=== PATIENT | female | born 1960 | race Caucasian/White ===

== ENCOUNTER 2017-08-19 13:15 | Emergency (ER) | payer OTHER ==
[~2017-08-19] VITALS: Ht 160 cm; Wt 86.6 kg
[2017-08-19 13:37] VITALS: BP 141/103
--- NOTE | 2017-08-19 13:44 | NUR ---
patient to rm 12 with steady gait and gave report to Tiffany BERRY.
--- NOTE | 2017-08-19 13:45 | NUR ---
57y/m bib self c/o intermittent headache x 1 week, progressively getting worse. Patient also reports of dizziness. Patient denies any dizziness or chest pain at this time. PATIENT POSITIONED FOR COMFORT; HOB ELEVATED; BEDRAILS UP X2; BED DOWN. ER MD MADE AWARE OF PT STATUS.
[2017-08-19] MEDS ORDERED: LIDOCAINE MPF 1% - **ER/OR** 10 MG/ML VIAL INJ ONE (14:35)
--- NOTE | 2017-08-19 14:41 | NUR ---
MEDICATION AND SUPPLY READY FOR MD
[2017-08-19 15:57] VITALS: BP 140/102
== END 2017-08-19 15:57 | disposition home or self-care (01) ==
LOC: MED 13:15
DX: G44.209 Tension-type headache, unspecified, not intractable (principal); J45.909 Unspecified asthma, uncomplicated
CPT/HCPCS: 20552; 81002; 99284; J2001

== ENCOUNTER 2017-11-19 17:40 | Emergency (ER) | payer OTHER ==
[~2017-11-19] VITALS: Ht 144.8 cm; Wt 68.9 kg
[2017-11-19 17:57] VITALS: BP 132/85
--- NOTE | 2017-11-19 18:03 | NUR ---
PT AMBULATES TO BED 2
--- NOTE | 2017-11-19 18:14 | NUR ---
bib self with c/o right shoulder pain x 3 wks. Patient sts no relief with OTC medication. Patient denies any recent injury or fall. Patient sts she has chronic right shoulder pain due to previous job. Patient also sts she has all over body pain x today. hx--arthritis, chronic shoulder pain. SKIN IS PINK/WARM/DRY; AAOX4 WITH EVEN AND STEADY GAIT; LUNGS CLEAR BL; HR EVEN AND REGULAR; PATIENT STATES PAIN OF 9/10 AT THIS TIME. PATIENT POSITIONED FOR COMFORT; HOB ELEVATED; BEDRAILS UP X2; BED DOWN. ER MD MADE AWARE OF PT STATUS.
--- NOTE | 2017-11-19 18:54 | NUR ---
X RAY AT BEDSIDE
--- NOTE | 2017-11-19 19:12 | NUR ---
Pt report given to HERIBERTO BERRY. Transfer of care at this time.
--- NOTE | 2017-11-19 19:13 | NUR ---
PT LYING IN BED, VITALS STABLE.
--- NOTE | 2017-11-19 19:42 | NUR ---
AT PT BEDSIDE
[2017-11-19] MEDS ORDERED: KETOROLAC 60 MG/2 ML VIAL IM ONE (19:45)
[2017-11-19 20:28] VITALS: BP 125/68
--- NOTE | 2017-11-19 20:28 | NUR ---
Patient discharged with v/s stable. Written and verbal after care instructions given and explained. Patient alert, oriented and verbalized understanding of instructions. Ambulatory with steady gait. All questions addressed prior to discharge. ID band removed. Patient advised to follow up with PMD. Rx of motrin was given. Patient educated on indication of medication including possible reaction and side effects. Opportunity to ask questions provided and answered.
== END 2017-11-19 20:28 | disposition home or self-care (01) ==
LOC: MED 17:40
DX: M25.511 Pain in right shoulder (principal); M06.9 Rheumatoid arthritis, unspecified; J45.909 Unspecified asthma, uncomplicated
CPT/HCPCS: 73030; 96372; 99284; J1885; Q0092

== ENCOUNTER 2018-11-09 09:44 | Emergency (ER) | payer OTHER ==
[~2018-11-09] VITALS: Ht 157.5 cm; Wt 83.6 kg
[2018-11-09 09:46] VITALS: BP 111/74
[2018-11-09] MEDS ORDERED: KETOROLAC 60 MG/2 ML VIAL IM ONE (11:10)
[2018-11-09 13:15] VITALS: BP 114/68
== END 2018-11-09 13:14 | disposition home or self-care (01) ==
LOC: MED 09:44
DX: S39.012A Strain of muscle, fascia and tendon of lower back, initial encounter (principal); J45.909 Unspecified asthma, uncomplicated; X58.XXXA Exposure to other specified factors, initial encounter; Y93.89 Activity, other specified; Y92.89 Other specified places as the place of occurrence of the external cause; Y99.8 Other external cause status
CPT/HCPCS: 74022; 96372; 99283; J1885

== ENCOUNTER 2019-01-12 10:48 | Emergency (ER) | payer OTHER ==
[~2019-01-12] VITALS: Ht 157.5 cm; Wt 84.8 kg
[2019-01-12 10:52] VITALS: BP 146/68
--- NOTE | 2019-01-12 10:57 | NUR ---
Patient ambulated to bed 3. RN evaluating patient at bedside.
--- NOTE | 2019-01-12 10:58 | NUR ---
RECIEVED PATIENT AAOX4, CITIZEN OF [place] SPE[employer], W/ C/O SOAR THROAT X2 DAYS THAT IS WORSENING, THROAT PAIN- 8/10. PT HAS A HX OF ASTHMA, NO FEVER @ PRESENT. PLACED IN A GOWN. PENDING ER MD DR CROWELL ASSESSMENT.
--- NOTE | 2019-01-12 11:16 | NUR ---
Dr. Dunn is evaluating the patient at bedside.
--- NOTE | 2019-01-12 11:19 | NUR ---
SEEN BY DR CROWELL AT BEDSIDE.
[2019-01-12] MEDS ORDERED: IBUPROFEN CHILDRENS 100 MG/5 ML UDC PO ONE (11:20)
--- NOTE | 2019-01-12 13:50 | NUR ---
Re-eval by dr Dunn and final dispo explained
[2019-01-12 14:14] VITALS: BP 101/67
--- NOTE | 2019-01-12 14:18 | NUR ---
Patient discharged with v/s stable. Written and verbal after care instructions, Rx x4 for prednisone, naproxen, nebulizer, metered dose recepticle given and explained. Patient verbalized understanding. Ambulatory with steady gait. All questions addressed prior to discharge. Advised to follow up with PMD.
== END 2019-01-12 14:18 | disposition home or self-care (01) ==
LOC: MED 10:48
DX: R03.0 Elevated blood-pressure reading, without diagnosis of hypertension (principal); J03.90 Acute tonsillitis, unspecified; J45.909 Unspecified asthma, uncomplicated
CPT/HCPCS: 87081; 99283

== ENCOUNTER 2019-07-27 10:58 | Emergency (ER) | payer OTHER ==
[~2019-07-27] VITALS: Ht 154.9 cm; Wt 85.7 kg
[2019-07-27 11:05] VITALS: BP 155/84
--- NOTE | 2019-07-27 11:08 | NUR ---
PT AMBULATED TO BED 07
--- NOTE | 2019-07-27 11:09 | NUR ---
59 Y/O FEMALE FROM HOME C/O LT SHOUDLER AND LT UPPER BACK PAIN S/P FALL 3 MONTHS AGO, INCREASED PAIN THE LAST 4 DAYS. PT STATES PAIN HAS BEEN KEEPING HER AWAKE AT NIGHT. NO DEFORMITIES NOTED. +CMS. 9/10 ACHING PAIN TO LT SHOULDER RADIATING TO BACK. DENIES CHEST PAIN/SOB. AWAKE AND ALERT, POSITIONED FOR COMFORT. VSS MEDHX: ASTHMA ALLERGIES: NKA
--- NOTE | 2019-07-27 11:23 | NUR ---
Dr. Mosley is evaluating the patient at bedside.
[2019-07-27] MEDS ORDERED: KETOROLAC 30 MG/ML VIAL IM ONE (11:25)
[2019-07-27] MEDS ORDERED: predniSONE 20 MG TAB PO ONE (12:10)
[2019-07-27 12:16] VITALS: BP 155/84
--- NOTE | 2019-07-27 12:17 | NUR ---
Patient discharged with v/s stable. Written and verbal after care instructions given and explained. Patient alert, oriented and verbalized understanding of instructions. Ambulatory with steady gait. All questions addressed prior to discharge. ID band removed. Patient advised to follow up with PMD. Rx of MOTRIN AND PREDNISONE given. Patient educated on indication of medication including possible reaction and side effects. Opportunity to ask questions provided and answered.
== END 2019-07-27 12:17 | disposition home or self-care (01) ==
LOC: MED 10:58
DX: M25.512 Pain in left shoulder (principal); J45.909 Unspecified asthma, uncomplicated
CPT/HCPCS: 73030; 96372; 99283; J1885; J7512

== ENCOUNTER 2019-08-10 10:55 | Observation (INO) | payer OTHER ==
[~2019-08-10] VITALS: Ht 160 cm; Wt 83.0 kg
--- NOTE | 2019-08-10 11:00 | NUR ---
PT AMBULATED TO BED 1, STEADY GAIT.
[2019-08-10 11:06] VITALS: BP 167/86
--- NOTE | 2019-08-10 11:08 | NUR ---
PT AMBULATED TO BATHROOM, STEADY GAIT.
--- NOTE | 2019-08-10 11:10 | NUR ---
59 Y/ F PRESENTS TO ED FOR DIZZINESS X 3 DAY, DRY MOUTH, AND CONSTANT HEART PALPITATION. PT DENIES CP, COUGH, SOB, OR FEVER. DENIES N/V/D/F, LUNGS CLEAR. RR EVEN AND UNLABORED, ABD SOFT, DENIES DYSURIA, CAP REFILL <3 SECONDS, SKIN WARM AND DRY TO TOUCH, PULSES 2+ B PMH- PREDIABETIC, ARTHRITIS, ASTHMA NKDA
--- NOTE | 2019-08-10 11:20 | NUR ---
LAB AT BEDSIDE.
--- NOTE | 2019-08-10 11:24 | NUR ---
ERMD AND LAB AT BEDSIDE
[2019-08-10 11:29] LABS: BASOPHILS # (AUTO) 0.1 K/uL (0.00-0.22); EOSINOPHILS # (AUTO) 0.1 K/uL (0-0.4); HEMATOCRIT 44.4 % (36-48); HEMOGLOBIN 14.5 g/dL (12.0-16.0); LYMPHOCYTES # (AUTO) 3.9 K/uL (2.5-16.5); LYMPHOCYTES % (AUTO) 28.4 % (20.5-51.1); MEAN CORPUSCULAR HEMOGLOBIN 30 pg (27-31); MEAN CORPUSCULAR HGB CONC 33 g/dL (33-37); MEAN CORPUSCULAR VOLUME 90.5 fL (80-94); MONOCYTES # (AUTO) 0.7 K/uL (0.8-1.0); MONOCYTES % (AUTO) 5.4 % (1.7-9.3); NEUTROPHILS # (AUTO) 8.9 K/uL (1.8-7.7); NEUTROPHILS % (AUTO) 64.2 % (42.2-75.2); PLATELET COUNT (AUTO) 282 K/uL (140-450); RED CELL DISTRIBUTION WIDTH 13.8 % (11.6-13.7); WHITE BLOOD COUNT (AUTO) 13.9 K/uL (4.8-10.8)
[2019-08-10] MEDS ORDERED: NACL 0.9% 1,000 ML IV ONE ×2 (11:30→12:20)
[2019-08-10 11:51] LABS: ALBUMIN 3.6 g/dL (3.4-5.0); ANION GAP 11.6 (8-16); CARBON DIOXIDE 27.5 mmol/L (21-32); POTASSIUM 4.1 mmol/L (3.5-5.1); TOTAL BILIRUBIN 0.8 mg/dL (0.0-1.0)
[2019-08-10 12:02] LABS: CREATINE KINASE MB 0.8 ng/mL (0-3.6)
[2019-08-10 12:02] LABS: APPEARANCE,URINE CLEAR (CLEAR); BILIRUBIN,URINE NEGATIVE (NEGATIVE); BLOOD, URINE NEGATIVE (NEGATIVE); COLOR,URINE YELLOW (YELLOW); LEUKOCYTE ESTERASE ,URINE NEGATIVE (NEGATIVE); NITRITE, URINE NEGATIVE (NEGATIVE); UGLUCOSE 3+ (NEGATIVE)
[2019-08-10] MEDS ORDERED: INSULIN REGULAR, HUMAN 100 UNIT/ML VIAL IVP ONE (12:20)
[2019-08-10 12:30] LABS: RBC,URINE 0-5 /HPF (0-5); WBC,URINE 0-5 /HPF (0-5)
--- NOTE | 2019-08-10 13:51 | NUR ---
ACCUCHECK [id number]
--- NOTE | 2019-08-10 13:51 | NUR ---
PT AMBULATED TO BATHROOM STEADY GAIT
--- NOTE | 2019-08-10 13:54 | NUR ---
PER REGISTRATION JIMMIE, SPOKE WITH EMERALD FROM [facility] AND APPROVED ADMISSION
[2019-08-10] MEDS ORDERED: ONDANSETRON 4 MG/2 ML VIAL IVP PRN (14:40)
[2019-08-10] MEDS ORDERED: HYDROcodone/APAP 5/325 MG 1 TAB TAB PO PRN (14:40)
[2019-08-10] MEDS ORDERED: ACETAMINOPHEN 325 MG TAB PO PRN (14:40)
[2019-08-10] MEDS ORDERED: DEXTROSE 50% 50 ML SYR IVP PRN (14:45)
[2019-08-10] MEDS: NACL 0.9% 1,000 ML IV SCH ×2 (15:13→23:08)
--- NOTE | 2019-08-10 15:22 | NUR ---
PT SITTING UPRIGHT IN BED EATING, ALL NEEDS MET AT THIS TIME. WILL CONTINUE TO MONITOR.
--- NOTE | 2019-08-10 16:02 | NUR ---
VSS. RR EVEN AND UNLABORED.
--- NOTE | 2019-08-10 16:34 | NUR ---
UPDATED PTS MANDEEP GREEN, CONTACT INFO # [phone]
--- NOTE | 2019-08-10 17:51 | NUR ---
PT ASLEEP IN BED, NORMAL CHEST RISE AND FALL. VSS
--- NOTE | 2019-08-10 18:20 | NUR ---
Patient will be admitted to care of DR. GAFFNEY. Admited to Med/Surg. Will go to room 105 B. Belongings list completed. Report to JAMAL MALIN.
--- NOTE | 2019-08-10 19:30 | NUR ---
RECEIVED PT FROM DAY SHIFT NURSE , REPORT GIVEN AT BED SIDE NURSE PT [place] SPE[employer] AAOX4 AMBULATORY, HL ON RT AC GAUGE # 20 PATENT IV FLUIDS INFUSING WELL, , SKIN IS INTACT, , PT IS ORIENTED TO THE FLOOR CALL LIGHT WITHIN REACH
[2019-08-10 20:00] VITALS: BP 147/86
[2019-08-10] MEDS: BLOOD GLUCOSE MONITORING 1 DEV DEV FS SCH ×2 (21:00→23:00)
--- NOTE | 2019-08-10 21:00 | NUR ---
P DENIES ANY PAIN OR DISCOMFORT , AMBULATES TO THE RESTROOM.
[2019-08-10] MEDS: INSULIN LISPRO SLIDING SCALE 100 UNITS/ML VIAL SUBQ PRN (23:24)
--- NOTE | 2019-08-10 23:57 | NUR ---
BLOOD SUGAR TEST 335 VCOVERAGE WITH 8 UNITS HUMALOG SUBQ FOLLOW PROTOCOL,
[2019-08-11] VITALS: BP 148/60
--- NOTE | 2019-08-11 04:00 | NUR ---
PT HAS BEEN MONITORING CLOSE NOT DISTRESS NOTED SLEEPING WELL
[2019-08-11] MEDS: NACL 0.9% 1,000 ML IV SCH (05:52)
[2019-08-11] MEDS: BLOOD GLUCOSE MONITORING 1 DEV DEV FS SCH ×3 (05:57→17:00)
[2019-08-11] MEDS: INSULIN LISPRO SLIDING SCALE 100 UNITS/ML VIAL SUBQ PRN ×3 (05:58→19:15)
--- NOTE | 2019-08-11 06:00 | NUR ---
BLOOD SUGAR TEST 310 COVERAGE WITH HUMALOG 8UNITS SUBQ FOLLOW PROTOCOL
--- NOTE | 2019-08-11 07:00 | NUR ---
PT IS ENDORSSED TO DAY SHIFT NURSE FOR CONTINUE OF CARE
--- NOTE | 2019-08-11 07:15 | NUR ---
RECEIVED PT FROM [facility] SHIFT NURSEMANFRED, PT IS AWAKE, ROMANSH SPEAKING, IV LINE NOTED ON THE RT AC G. 20 WITH IVF NS INFUSING AT 100ML/HR, INTACT, PT DENIES PAIN, ON ROOM AIR AND NO SIGN OF DISTRESS NOTED, WILL MONITOR PT.
[2019-08-11 07:29] LABS: BASOPHILS # (AUTO) 0.1 K/uL (0.00-0.22); BASOPHILS % (AUTO) 0.7 % (0.0-2.0); EOSINOPHILS # (AUTO) 0.2 K/uL (0-0.4); EOSINOPHILS % (AUTO) 2.1 % (0.0-4.0); HEMATOCRIT 41.3 % (36-48); HEMOGLOBIN 13.5 g/dL (12.0-16.0); LYMPHOCYTES # (AUTO) 4.1 K/uL (2.5-16.5); MEAN CORPUSCULAR HEMOGLOBIN 29 pg (27-31); MEAN CORPUSCULAR HGB CONC 33 g/dL (33-37); MEAN CORPUSCULAR VOLUME 89.8 fL (80-94); MONOCYTES # (AUTO) 0.6 K/uL (0.8-1.0); MONOCYTES % (AUTO) 5.9 % (1.7-9.3); NEUTROPHILS # (AUTO) 5.6 K/uL (1.8-7.7); NEUTROPHILS % (AUTO) 52.3 % (42.2-75.2); PLATELET COUNT (AUTO) 263 K/uL (140-450); RED BLOOD CELL COUNT(AUTO) 4.59 MIL/uL (4.20-5.40); RED CELL DISTRIBUTION WIDTH 14.2 % (11.6-13.7); WHITE BLOOD COUNT (AUTO) 10.6 K/uL (4.8-10.8)
[2019-08-11 07:53] LABS: ANION GAP 7.7 (8-16); CARBON DIOXIDE 28.2 mmol/L (21-32); CREATININE 0.6 mg/dL (0.6-1.3); MAGNESIUM 1.8 mg/dL (1.8-2.4); POTASSIUM 3.9 mmol/L (3.5-5.1); TOTAL BILIRUBIN 0.5 mg/dL (0.0-1.0)
[2019-08-11 08:00] VITALS: BP 130/60
[2019-08-11 08:11] LABS: ANION GAP 12.1 (8-16); CREATININE 0.7 mg/dL (0.6-1.3); POTASSIUM 4.1 mmol/L (3.5-5.1); TOTAL BILIRUBIN 0.5 mg/dL (0.0-1.0)
[2019-08-11] MEDS ORDERED: ASPIRIN 81 MG TAB.CHEW PO SCH (09:00)
--- NOTE | 2019-08-11 09:24 | NUR ---
CLERK GENERAL NOTE: Patient's Orientation Person Situation Place Time Information Provided By NORMA DOMINGUEZ - DAUGHTER Rail Detector Car Operator, Realtionship and Phone Number NORMA DOMINGUEZ DAUGHTER [phone] Healthcare Power of Warehouse Foreman No Does Patient Have a POLST No Identifying Problems No Social Work Triggers Is A Social Work Consult Needed No Mandate Report Filed No Explanation Of Identifying Problems PATIENT IS A 59-YEAR-OLD FEMALE ADMITTED FOR NEW ONSET DIABETES. PATIENT HAS PMHX OF HTN AND DIABETES. Admitted From Home Pre-Admission Level Of Functioning Status Independent/Ambulatory Prior Resources/Services Used In Last 12 Months No Prior Resources Used Prior DME No Prior DME Used Living Situation Apartment Lives With Family Patient Had Caregiver No Home Support No Caregiver Issues Financial Issues No Known Financial Issue Factors/Needs No D/C Needs Identified Pt/Rep Participated In Discharge Plan Yes Patient/Family Agress With Discharge Plan Yes Discharge Plan Comments TENTATIVE DISCHARGE PLAN IS FOR PATIENT TO RETURN HOME. DC Plan Status Initiated
--- NOTE | 2019-08-11 10:02 | NUR ---
PT WAS GIVEN THE SCHEDULED AM MEDICATION AND WAS ASSISTED TO THE BNATHROOM AND BACK TO BED, NO SIGN OF DISTRESS NOTED. WILL MONITOR PT.
--- NOTE | 2019-08-11 10:16 | NUR ---
PATIENT HAS BEEN SCREENED AND CATEGORIZED HIGH NUTRITION RISK. PATIENT WILL BE SEEN WITHIN 1-2 DAYS OF ADMISSION. 08/10/19 08/11/[address]
--- NOTE | 2019-08-11 11:30 | NUR ---
PT WAS GIVEN INSULIN 8 UNITS FOR BLOOD GLUCOSE OF 345 ON THE ABDOMEN, WILL MONITOR PT.
--- NOTE | 2019-08-11 14:33 | NUR ---
DISCHARGE PLANNING: THIS IS A 59 Y/O FEMALE PATIENT FROM HOME, WHO CAME IN DUE TO WORSENING GENERALIZED WEAKNESS, DIZZINESS, EXCESSIVE THIRST AND DRY MOUTH. PAST MEDICAL HISTORY INCLUDE PRE DIABETES AND ASTHMA. INITIAL DIAGNOSIS OF DIABETES. CURRENT LABS INCLUDE GLU 295. ON INSULIN SLIDING SCALE. DC PLAN BACK TO HOME ONCE STABLE.
[2019-08-11] MEDS ORDERED: ASPI81CT95 PO (15:29)
[2019-08-11] MEDS ORDERED: METF1000 PO (15:29)
[2019-08-11 16:00] VITALS: BP 111/66
--- NOTE | 2019-08-11 19:15 | NUR ---
ENDORSED PT TO APPAREL CUTTER NURSE FOR CONTINUITY OF CARE.
--- NOTE | 2019-08-11 19:16 | NUR ---
RECD. SITTING ON BED, A/OX4. ALREADY DRESSED, READY TO GO HOME. SIGNED ALL DISCHARGE PAPERS AND BELONGINGS CHECKLIST. STATED THAT HER GRANDDAUGHTER IS ASLEEP AND NOBODY CAN TAKE HER HOME BUT IT IS JUST THE NEXT [address] FROM [place] AND THAT SHE CAN WALK BY HERSELF.
--- NOTE | 2019-08-11 19:30 | NUR ---
PRESCRIPTION GIVEN AND PATIENT COPY OF DISCHARGE PAPERS, ALL BELONGINGS PREPARED TO BE TAKEN HOME.
--- NOTE | 2019-08-11 19:45 | NUR ---
TAKEN TO HOSPITAL LOBBY PARKING IN STABLE CONDITION VIA W/C FOR DISCHARGE TO HOME.
== END 2019-08-11 19:45 | disposition home or self-care (01) ==
LOC: MED 10:55 → MTU 14:37
PROVIDERS: ADMIT Hospitalist; ATTEND Hospitalist
DX: E11.65 Type 2 diabetes mellitus with hyperglycemia (principal); R42 Dizziness and giddiness; I10 Essential (primary) hypertension; J45.909 Unspecified asthma, uncomplicated; Z79.899 Other long term (current) drug therapy
CPT/HCPCS: 36415; 71045; 80053; 81001; 82550; 82553; 82948; 83036; 83690; 83735; 84484; 85025; 87081; 96361; 96372; 96374; 99285; G0378; J1815; J7030; Q0092

== ENCOUNTER 2019-10-28 11:24 | Emergency (ER) | payer OTHER ==
[~2019-10-28] VITALS: Ht 160 cm; Wt 80.7 kg
[~2019-10-28 11:24] MED LIST: ASPI81CT95 PO; METF1000 PO
[2019-10-28 11:27] VITALS: BP 129/80
--- NOTE | 2019-10-28 12:13 | NUR ---
REFERRED FROM [facility] FOR WORSENING LEFT MID BACK PAIN RADIATING TO LEFT FLANK & MID ABD X 3 DAYS. UNRELIEVED WITH IBUPROFEN 800 MG. HX- ASTHMA, DM NKA
--- NOTE | 2019-10-28 12:44 | NUR ---
PT TAKEN TO CT
[2019-10-28] MEDS ORDERED: KETOROLAC 30 MG/ML VIAL IM ONE (12:50)
[2019-10-28 13:27] LABS: BASOPHILS % (AUTO) 0.5 % (0.0-2.0); EOSINOPHILS # (AUTO) 0.2 K/uL (0-0.4); EOSINOPHILS % (AUTO) 2.8 % (0.0-4.0); HEMATOCRIT 39.4 % (36-48); HEMOGLOBIN 12.9 g/dL (12.0-16.0); LYMPHOCYTES # (AUTO) 3.5 K/uL (2.5-16.5); LYMPHOCYTES % (AUTO) 39.4 % (20.5-51.1); MEAN CORPUSCULAR HEMOGLOBIN 29 pg (27-31); MEAN CORPUSCULAR HGB CONC 33 g/dL (33-37); MEAN CORPUSCULAR VOLUME 88.7 fL (80-94); MONOCYTES # (AUTO) 0.7 K/uL (0.8-1.0); MONOCYTES % (AUTO) 7.7 % (1.7-9.3); NEUTROPHILS # (AUTO) 4.4 K/uL (1.8-7.7); NEUTROPHILS % (AUTO) 49.6 % (42.2-75.2); PLATELET COUNT (AUTO) 250 K/uL (140-450); RED BLOOD CELL COUNT(AUTO) 4.44 MIL/uL (4.20-5.40); RED CELL DISTRIBUTION WIDTH 13.5 % (11.6-13.7); WHITE BLOOD COUNT (AUTO) 8.9 K/uL (4.8-10.8)
[2019-10-28 13:42] LABS: ALBUMIN 3.4 g/dL (3.4-5.0); ANION GAP 10.2 (8-16); CARBON DIOXIDE 27.6 mmol/L (21-32); CREATININE 0.6 mg/dL (0.6-1.3); POTASSIUM 3.8 mmol/L (3.5-5.1); TOTAL BILIRUBIN 0.5 mg/dL (0.0-1.0)
[2019-10-28 13:56] LABS: APPEARANCE,URINE CLEAR (CLEAR); BILIRUBIN,URINE NEGATIVE (NEGATIVE); BLOOD, URINE NEGATIVE (NEGATIVE); COLOR,URINE YELLOW (YELLOW); LEUKOCYTE ESTERASE ,URINE NEGATIVE (NEGATIVE); NITRITE, URINE NEGATIVE (NEGATIVE); UGLUCOSE NEGATIVE (NEGATIVE)
--- NOTE | 2019-10-28 14:02 | NUR ---
PATIENT STATES THAT PAIN HAS DECREASED TO A 2/10
[2019-10-28 14:26] VITALS: BP 136/76
--- NOTE | 2019-10-28 14:26 | NUR ---
Patient discharged with v/s stable. Written and verbal after care instructions given and explained. Patient alert, oriented and verbalized understanding of instructions. Ambulatory with steady gait. All questions addressed prior to discharge. ID band removed. Patient advised to follow up with PMD. Rx of MOTRIN AND TYLENOL given. Patient educated on indication of medication including possible reaction and side effects. Opportunity to ask questions provided and answered. TE STORE COORDINATOR INSTRUCTED PT IN [place] THAT CT RESULT DID NOT HAVE ANY ABNORMAL FINDINGS PT VERBLAIZED NO FURTHER QUESTIONS
--- NOTE | 2019-10-28 14:26 | NUR ---
NADR, PAIN 04/20
== END 2019-10-28 14:26 | disposition home or self-care (01) ==
LOC: MED 11:24
DX: R10.9 Unspecified abdominal pain (principal); E11.9 Type 2 diabetes mellitus without complications; I10 Essential (primary) hypertension
CPT/HCPCS: 36415; 74176; 80053; 81003; 85025; 96372; 99284; J1885; 93005

== ENCOUNTER 2020-05-26 15:02 | Emergency (ER) | payer OTHER ==
[~2020-05-26] VITALS: Ht 160 cm; Wt 117.9 kg
[2020-05-26 15:07] VITALS: BP 160/78
--- NOTE | 2020-05-26 15:40 | NUR ---
Patient is a 59 y/o female c/c RUQ pain x2 days. Patient states that pain is intermittent and sharp. Patient denies n/v/d, fever, chills, CP, SOB, headache, dizziness or blurry vision. PMH: Diabetes Meds: Metformin Allergies: NKA
[2020-05-26 15:54] LABS: BASOPHILS % (AUTO) 0.3 % (0.0-2.0); EOSINOPHILS # (AUTO) 0.3 K/uL (0-0.4); EOSINOPHILS % (AUTO) 2.3 % (0.0-4.0); HEMATOCRIT 38.9 % (36-48); LYMPHOCYTES # (AUTO) 4.3 K/uL (2.5-16.5); LYMPHOCYTES % (AUTO) 39.4 % (20.5-51.1); MEAN CORPUSCULAR HEMOGLOBIN 29 pg (27-31); MEAN CORPUSCULAR HGB CONC 33 g/dL (33-37); MONOCYTES # (AUTO) 0.8 K/uL (0.8-1.0); MONOCYTES % (AUTO) 7.7 % (1.7-9.3); NEUTROPHILS # (AUTO) 5.5 K/uL (1.8-7.7); NEUTROPHILS % (AUTO) 50.3 % (42.2-75.2); PLATELET COUNT (AUTO) 236 K/uL (140-450); RED BLOOD CELL COUNT(AUTO) 4.47 MIL/uL (4.20-5.40); WHITE BLOOD COUNT (AUTO) 10.9 K/uL (4.8-10.8)
[2020-05-26] MEDS ORDERED: KETOROLAC 60 MG/2 ML VIAL IM ONE (16:05)
[2020-05-26 16:12] LABS: ALBUMIN 3.5 g/dL (3.4-5.0); ANION GAP 7.8 (8-16); CARBON DIOXIDE 30.1 mmol/L (21-32); CREATININE 0.6 mg/dL (0.6-1.3); POTASSIUM 3.9 mmol/L (3.5-5.1); TOTAL BILIRUBIN 0.4 mg/dL (0.0-1.0)
[2020-05-26] MEDS ORDERED: FAMO-90 PO (17:25)
[2020-05-26] MEDS ORDERED: FAMOTIDINE 20 MG TAB PO ONE (17:25)
[2020-05-26 17:33] VITALS: BP 133/68
--- NOTE | 2020-05-26 17:33 | NUR ---
Patient discharged with v/s stable. Written and verbal after care instructions given and explained. Patient alert, oriented and verbalized understanding of instructions. Ambulatory with steady gait. All questions addressed prior to discharge. ID band removed. Patient advised to follow up with PMD. Rx of Famotidine given. Patient educated on indication of medication including possible reaction and side effects. Opportunity to ask questions provided and answered.
== END 2020-05-26 17:33 | disposition home or self-care (01) ==
LOC: MED 15:02
DX: K29.70 Gastritis, unspecified, without bleeding (principal); R16.0 Hepatomegaly, not elsewhere classified; R73.03 Prediabetes
CPT/HCPCS: 36415; 76705; 80053; 81002; 83690; 85025; 96372; 99284; J1885